=== PATIENT | male | born 1985 | race Hispanic/Latino ===

== ENCOUNTER 2019-10-13 10:21 | Emergency (ER) | payer SELFPAY ==
[2019-10-13 10:46] LABS: #Basophils 0.1 thou/uL (0.0-0.2); #Eosinphils 0.1 thou/uL (0.0-0.7); #Monocytes 0.4 thou/uL (0.11-0.59); #Neutrophils 5.7 thou/uL (1.40-6.50); %Basophils 0.9 % (0.0-1.0); %Eosinophils 0.7 % (0.0-10.0); %Monocytes 4.9 % (0.0-10.0); %Neutrophils 69.5 % (42.0-75.0); Hemoglobin 15.3 g/dL (14.0-18.0); Mean Corpuscular HGB CONC 34.7 g/dL (32.0-36.0); Mean Corpuscular Hemoglobin 31.6 pg (27.0-31.0); Mean Corpuscular Volume 91.1 fL (78.0-98.0); Mean Platelet Volume 8.6 fL (7.4-10.4); Platelet Count 311 thou/uL (130-400); RBC Distribution Width 10.9 % (11.5-14.5); Red Blood Cell (RBC) Count 4.85 mill/uL (4.70-6.10); White Blood Cell (WBC) Count 8.2 thou/uL (4.8-10.8)
[2019-10-13 10:48] LABS: INR-International Normal Ratio 1.1; PTT 29.3 SEC (22.9-36.1); Prothrombin Time 14.1 SEC (12.0-14.7)
--- NOTE | 2019-10-13 10:55 | RAD ---
SINGLE VIEW CHEST: Date: 10/13/2019 COMPARISON: None. HISTORY: Fall from roof 14 ft., with chest pain. FINDINGS: Single view of the chest shows a normal sized cardiomediastinal silhouette. There is no evidence of c onsolidation, mass, or pleural effusion. The bones are unremarkable. IMPRESSION: No evidence of acute cardiopulmonary disease. POS: [facility]
--- NOTE | 2019-10-13 10:56 | RAD ---
SINGLE VIEW PELVIS: Date: 10/13/2019 HISTORY: Fall from roof 14 ft., with pelvic pain. FINDINGS: Single view of the pelvis shows no evidence of acute fracture or dislocation. No degenerative changes are seen. IMPRESSION: Unremarkable exam. POS: [facility]
[2019-10-13 11:04] LABS: ALT (SGPT) 23 U/L (8-55); AST (SGOT) 23 U/L (5-34); Albumin 4.7 g/dL (3.5-5.0); Alkaline Phosphatase 72 U/L (40-110); Anion Gap 13 mmol/L (10-20); BUN (Urea Nitrogen) 14 mg/dL (8.9-20.6); Bilirubin, Total 0.9 mg/dL (0.2-1.2); CK (CPK) 105 U/L (30-200); Calc. Creatinine Clearance 0 mL/min (70-130); Calcium 9.5 mg/dL (7.8-10.44); Carbon Dioxide 26 mmol/L (22-29); Chloride 105 mmol/L (98-107); Estimated GFR-MDRD Greater than 90; Globulin 2.9 g/dL (2.4-3.5); Glucose 118 mg/dL (70-105); Potassium 4.5 mmol/L (3.5-5.1); Protein, Total 7.6 g/dL (6.0-8.3); Sodium 139 mmol/L (136-145)
[2019-10-13] MEDS ORDERED: Morphine 4 MG/ML VIAL ONE (11:27)
--- NOTE | 2019-10-13 12:12 | CT ---
CT OF BRAIN PERFORMED WITHOUT CONTRAST ENHANCEMENT: Date: 10/13/2019 HISTORY: Head injury. FINDINGS: Right frontal scalp hematoma is noted. The ventricular and cisternal system is within normal limits. There are no signs of intracerebral hemorrhage or extra-axial fluid collections. Mastoid air cells an d visualized sinuses are clear. IMPRESSION: No acute intracranial abnormalities. Findings telephoned to Dr. Dhillon at 1044 hours. CODE CR. POS: [facility]
[2019-10-13] MEDS ORDERED: Lidocaine 1% w/Epinephrine 1:100K 20 ML VIAL ONE (12:13)
--- NOTE | 2019-10-13 12:29 | RAD ---
2 VIEWS RIGHT FOREARM: Date: 10/13/2019 HISTORY: Fall 14 ft. from a roof with right arm pain. FINDINGS: 2 views of the right forearm show no evidence of acute fracture or dislocation. No radiopaque foreign body is seen. No degenerative changes are seen. IMPRESSION: Unremarkable exam. POS: [facility]
--- NOTE | 2019-10-13 12:30 | RAD ---
3 VIEWS LEFT ANKLE: Date: 10/13/2019 HISTORY: Fell 14 ft. from a roof with ankle pain. FINDINGS: 3 views of the left ankle show a small fracture through the distal tip of the fibula/lateral malleolu s. No tibial fracture is seen. Mild soft tissue swelling is seen. IMPRESSION: Small fracture of the tip of the lateral malleolus. POS: [facility]
--- NOTE | 2019-10-13 12:36 | CT ---
CT OF CERVICAL SPINE PERFORMED WITHOUT CONTRAST ENHANCEMENT: Date: 10/13/2019 HISTORY: Patient fell, neck pain. FINDINGS: The vertebral bodies are normal in height. Disc spaces appear well preserved. The facets are in devendra l alignment. No evidence of canal or foraminal stenosis. There is no CT evidence for fracture. Lung apices are clear. IMPRESSION: No CT evidence of fracture of the cervical spine. This report was telephoned to Dr. Dhillon at 1044 hours. CODE CR. POS: [facility]
== END 2019-10-13 12:55 | disposition home or self-care (01) ==
LOC: ERS 10:21
DX: S82.62XA Displaced fracture of lateral malleolus of left fibula, initial encounter for closed fracture (principal); S01.81XA Laceration without foreign body of other part of head, initial encounter; S70.211A Abrasion, right hip, initial encounter; M79.631 Pain in right forearm; E07.9 Disorder of thyroid, unspecified; Z79.899 Other long term (current) drug therapy; W17.89XA Other fall from one level to another, initial encounter
CPT/HCPCS: 12011; 29515; 36415; 70450; 71045; 72125; 72170; 80053; 82550; 83605; 85025; 85610; 85730; 93005; 96374; G0390; J2270